=== PATIENT | male | born 1955 | race Caucasian/White ===

== ENCOUNTER 2016-10-28 05:18 | Inpatient (IN) | payer OTHER ==
[~2016-10-28 05:18] MED LIST: ALDACTONE25 M1 PO; ALLOPURINOL300 M1 PO; ASPIRIN EC81 MG PO; COREG12.5 M1 PO; ENALAPRIL MALE2.5 M1 PO; FISH OIL 1,2001 EAC5 PO; FLOMAX0.4 M1 PO; GLUCOPHAGE500 M3 PO; LIPITOR80 M1 PO; METFORMIN HCL500 M2 PO; MULTIVITAMINS1 EAC6 PO; ZETIA10 M1 PO
[2016-10-28 06:03] LABS: ANION GAP 13 mmol/L (0-20); BLOOD UREA NITROGEN 20 mg/dl (6-24); CALCIUM 8.9 mg/dl (8.5-10.5); CARBON DIOXIDE-VENOUS 25 mmol/L (22-32); CHLORIDE 109 mmol/l (96-110); CREATININE 1.03 mg/dl (0.60-1.30); GLUCOSE 108 mg/dL (70-110); POTASSIUM 4.2 mmol/L (3.7-5.1); SODIUM 143 mmol/L (135-145); eGFR VALUE FOR BLACK 90 mL/Min
[2016-10-29 06:50] LABS: ANION GAP 12 mmol/L (0-20); BLOOD UREA NITROGEN 17 mg/dl (6-24); CALCIUM 9.1 mg/dl (8.5-10.5); CARBON DIOXIDE-VENOUS 28 mmol/L (22-32); CHLORIDE 110 mmol/l (96-110); CREATININE 0.86 mg/dl (0.60-1.30); GLUCOSE 127 mg/dL (70-110); SODIUM 145 mmol/L (135-145); eGFR VALUE FOR BLACK >90 mL/Min
[2016-10-29 06:55] LABS: POTASSIUM 5.2 mmol/L (3.7-5.1)
[2016-10-30] MEDS ORDERED: NORCO 5-325 TA1 EACH PO (08:36)
[2016-10-30] MEDS ORDERED: SENOKOT-S TABL1 EACH PO (08:43)
[2016-10-30] MEDS ORDERED: ROBAXIN500 M1 PO (08:48)
[2016-10-30] MEDS ORDERED: ROBAXIN-750750 M1 PO (08:53)
[2016-10-30] MEDS ORDERED: ROBAXIN-750750 M1 (11:04)
== END 2016-10-30 14:15 | DRG 460 ==
LOC: SHSA 05:18 → ORE 07:58 → PACU 11:32 → 5EA 13:20
PROVIDERS: Anesthesiology; ADMIT Neurological Surgery
PROC: 0SG00AJ Fusion of Lumbar Vertebral Joint with Interbody Fusion Device, Posterior Approach, Anterior Column, Open Approach (ICD-10-PCS; principal; 2016-10-28)
PROC: 0SG0071 Fusion of Lumbar Vertebral Joint with Autologous Tissue Substitute, Posterior Approach, Posterior Column, Open Approach (ICD-10-PCS; 2016-10-28)
PROC: 07DR3ZZ Extraction of Iliac Bone Marrow, Percutaneous Approach (ICD-10-PCS; 2016-10-28)
DX: M54.5 Low back pain (principal); I11.0 Hypertensive heart disease with heart failure; I50.9 Heart failure, unspecified; Z68.41 Body mass index [BMI] 40.0-44.9, adult; M48.06 Spinal stenosis, lumbar region; M54.16 Radiculopathy, lumbar region; I25.10 Atherosclerotic heart disease of native coronary artery without angina pectoris; I25.5 Ischemic cardiomyopathy; E11.9 Type 2 diabetes mellitus without complications; E87.5 Hyperkalemia; E78.5 Hyperlipidemia, unspecified; E66.01 Morbid (severe) obesity due to excess calories; M10.9 Gout, unspecified; N40.1 Benign prostatic hyperplasia with lower urinary tract symptoms; Z72.0 Tobacco use; Z95.1 Presence of aortocoronary bypass graft; Z79.82 Long term (current) use of aspirin; Z79.84 Long term (current) use of oral hypoglycemic drugs; Z79.899 Other long term (current) drug therapy
CPT/HCPCS: C1713; J0690; J1815; J2250; J2270; J2800; J3010; J3370; J7040